=== PATIENT | female | born 1965 | race Caucasian/White ===

== ENCOUNTER 2018-03-24 12:53 | Emergency (ER) | payer BC ==
[2018-03-24] MEDS ORDERED: Metoclopramide 10 MG/2 ML SDV IVPUSH ONE (13:49)
[2018-03-24] MEDS ORDERED: diphenhydrAMINE 50 MG/ML SDV IVPUSH ONE (13:50)
[2018-03-24] MEDS ORDERED: HYDROmorphone 0.5 MG/0.5 ML SYRINGE IVPUSH ONE (13:50)
--- NOTE | 2018-03-24 13:54 | EDM.PDOC ---
ED HPI GENERAL MEDICAL PROBLEM - General Chief Complaint: Headache Stated Complaint: MIGRAINE Time Seen by Provider: 03/24/18 13:49 Source of Information: Reports: Patient History Limitations: Reports: No Limitations - History of Present Illness INITIAL COMMENTS - FREE TEXT/NARRATIVE: 52-year-old female presents to the ED with a severe headache which is dulled bilateral occipital headache and then radiates up into her head. She has a history of migraine headaches. Associated nausea with vomiting this morning. She awoke with a headache. Neck neck point pain. She is very sensitive to light. Was examined in a darkened room. Nothing different about this headache as compared to usual other than it's more occipital than usual. She has not taken any medication at home as she felt too nauseated. Onset: Today Onset Date: 03/24/18 Onset Time: 07:00 Duration: Hour(s): Location: Reports: Head Quality: Reports: Ache (Headache primarily occipital pressure discomfort.), Throbbing, Other Severity: Moderate (Pounding) Improves with: Reports: Rest ( rates it as 8 out of 10.) Worsens with: Reports: Movement ( in a darkened room. ) Context: Denies: Activity, Exercise, Lifting, Sick Contact, Trauma, Other Associated Symptoms: Reports: Headaches, Nausea/Vomiting (Nausea and vomiting this morning associate with the intensity of the headache). Denies: No Other Symptoms, Confusion, Chest Pain, Cough, cough w sputum, Diaphoresis, Fever/ Chills, Loss of Appetite, Malaise, Rash, Seizure, Shortness of Breath, Syncope Treatments SAP TRAINER: Reports: Other (see below) (None.) Headache Pain Score (Numeric/FACES): 10 - Related Data Allergies Allergy/AdvReac Type Severity Reaction Status Date / Time No Known Allergies Allergy Verified 03/24/18 13:10 Home Meds: Home Meds LORazepam [Ativan] 1 mg PO QPM PRN 04/13/15 [History] atorvaSTATin Calcium [Atorvastatin Calcium] 10 mg PO DAILY 04/13/15 [History] Past Medical History Neurological History: Reports: Other (See Below) Other Neuro History: migraine Social & Family History - Family History Family Medical History: Noncontributory - Tobacco Use Smoking Status *Q: Current Every Day Smoker Years of Tobacco use: 30 Packs/Tins Daily: 0.5 - Caffeine Use Caffeine Use: Reports: Coffee - Recreational Drug Use Recreational Drug Use: No - Living Situation & Occupation Living situation: Reports: Occupation: Employed [employer] - Review of Systems Review Of Systems: See Below Constitutional: Reports: Malaise, Fatigue, Decreased Appetite. Denies: Fever, Chills HEENT: Reports: Other Respiratory: Reports: No Symptoms (Photosensitivity) Cardiovascular: Reports: No Symptoms Endocrine: Reports: No Symptoms GI/Abdominal: Reports: Nausea, Vomiting (Twice this morning.) : Reports: No Symptoms Musculoskeletal: Reports: Neck Pain Skin: Reports: No Symptoms (Has pressure at the occipital aspect of her skull bilaterally.) Neurological: Reports: Headache. Denies: Confusion, Dizziness, Numbness, Syncope, Tingling, Tremors, Trouble Speaking, Weakness, Gait Disturbance Psychiatric: Denies: No Symptoms Hematologic/Lymphatic: Reports: No Symptoms Immunologic: Reports: No Symptoms - Physical Exam Exam: See Below Exam Limited By: No Limitations General Appearance: Alert, WD/WN, Moderate Distress (Examination a darkened room due to photophobia.) Eye Exam: Bilateral Eye: Normal Inspection Throat/Mouth: Normal Inspection, Normal Lips, Normal Teeth, Normal Oropharynx Head Exam: Atraumatic, Normocephalic Neck: Supple, Full Range of Motion, Tender Lateral (Tender laterally bilaterally worse on the left as compared to the right.) Respiratory/Chest: No Respiratory Distress, Lungs Clear, Normal Breath Sounds Neuro Exam (Abbreviated): Alert, Oriented, CN II-XII Intact, Normal Cognition, No Motor/Sensory Deficits, Other (Rapid alternating movements are normal. There is no pronator drift. Finger to nose assessment normal.) Extremities: Normal Inspection, Normal Range of Motion, Non-Tender, No Pedal Edema Psychiatric: Normal Affect, Normal Mood Skin Exam: Warm, Dry, Intact, Normal Color, No Rash Course - Vital Signs Last Recorded V/S: Last Vital Signs Temp 36.8 C 03/24/18 13:08 Pulse 84 03/24/18 13:08 Resp 18 03/24/18 13:08 BP 155/94 H 03/24/18 13:08 Pulse Ox 99 03/24/18 13:08 - Orders/Labs/Meds Orders: Active Orders 24 hr Category Date Time Status Dextrose 5%-0.9% NaCl [Dextrose 5%-Normal Saline] 1,000 Med 03/24/18 14:00 Active ml IV ASDIRECTED Ketorolac [Toradol] Med 03/24/18 14:00 Active 30 mg IVPUSH ONETIME Medication Orders Dextrose/Sodium Chloride (Dextrose 5%-Normal Saline) 1,000 mls @ 999 mls/hr IV ASDIRECTED STEPHANIE Last Admin: 03/24/18 14:12 Dose: 999 mls/hr Ketorolac Tromethamine (Toradol) 30 mg IVPUSH ONETIME STEPHANIE Last Admin: 03/24/18 14:12 Dose: 30 mg Meds: Medications Generic Name Dose Route Start Last Admin Trade Name Freq PRN Reason Stop Dose Admin Dextrose/Sodium Chloride 1,000 mls @ 999 mls/hr 03/24/18 14:00 03/24/18 14:12 Dextrose 5%-Normal Saline IV 999 mls/hr ASDIRECTED STEPHANIE Administration Ketorolac Tromethamine 30 mg 03/24/18 14:00 03/24/18 14:12 Toradol IVPUSH 30 mg ONETIME STEPHANIE Administration Discontinued Medications Generic Name Dose Route Start Last Admin Trade Name Freq PRN Reason Stop Dose Admin Diphenhydramine HCl 25 mg 03/24/18 13:50 03/24/18 14:14 Benadryl IVPUSH 03/24/18 13:51 25 mg ONETIME ONE Administration Hydromorphone HCl 0.5 mg 03/24/18 13:50 03/24/18 14:13 Dilaudid IVPUSH 03/24/18 13:51 0.5 mg ONETIME ONE Administration Metoclopramide HCl 7.5 mg 03/24/18 13:49 03/24/18 14:10 Reglan IVPUSH 03/24/18 13:50 7.5 mg ONETIME ONE Administration - Radiology Interpretation Free Text/Narrative:: 52-year-old female presents to the ED after awakening from sleep with a severe headache. Headache is atypical in terms that she usually gets a hemicranial headache which is usually retro-orbital. This headache is bilateral and tends to be primarily occipital. Associated nausea and vomiting 2 this morning. She' s not been able to keep anything down. First to be examined and darkened room. No exam is completely normal however. Plan IV D5 normal saline at open. Given Dilaudid 0.5 mg IV with Toradol 30 mg IV Reglan 7.5 mg IV and Benadryl 25 mg IV for headache relief. Will review in 30-40 minutes. - Re-Assessments/Exams Free Text/Narrative Re-Assessment/Exam: 03/24/18 15:16 she is feeling much better. She had a sleep for a period of time. She is now alert and oriented. Headache is preload gone nausea is gone. She'll be discharged to home to nap for another few hours to break the headache cycle. To take her home. Departure - Departure Time of Disposition: 15:16 Disposition: Home, Self-Care 01 Condition: Fair Clinical Impression: Migraine headache Qualifiers: Migraine type: without aura Status migrainosus presence: without status migrainosus Intractability: not intractable Qualified Code(s): G43.009 - Migraine without aura, not intractable, without status migrainosus - Discharge Information Referrals: Elaina Valdez ADMIN SECRETARY [Primary Care Provider] - Forms: ED Department Discharge Additional Instructions: Evaluation in the emergency him today in regards to development of a severe headache that she awoke with. History of migraine headaches. This headache was somewhat atypical that it involves the base of the skull bilaterally. Associated nausea and vomiting and photophobia. Neuro exam is otherwise normal. You're treated with intravenous pain medications Dilaudid 0.5 mg and Toradol 30 mg. You're also given antinausea medication Reglan 7.5 mg and Benadryl 25 mg IV for headache relief. Suggest home to sleep for another couple of hours. They need to resume fluids such as Gatorade or Powerade to maintain hydration and resume regular diet. - My Orders Last 24 Hours: My Active Orders 03/24/18 14:00 Dextrose 5%-0.9% NaCl [Dextrose 5%-Normal Saline] 1,000 ml IV ASDIRECTED Ketorolac [Toradol] 30 mg IVPUSH ONETIME - Assessment/Plan Last 24 Hours: My Active Orders 03/24/18 14:00 Dextrose 5%-0.9% NaCl [Dextrose 5%-Normal Saline] 1,000 ml IV ASDIRECTED Ketorolac [Toradol] 30 mg IVPUSH ONETIME
[2018-03-24] MEDS ORDERED: Dextrose 5%-0.9% NaCl 1,000 ML IV SCH (14:00)
[2018-03-24] MEDS ORDERED: Ketorolac 30 MG/ML SDV IVPUSH SCH (14:00)
[2018-03-24 15:26] VITALS: BP 135/69
== END 2018-03-24 15:23 | disposition home or self-care (01) ==
LOC: JD.ED 12:53
DX: G43.009 Migraine without aura, not intractable, without status migrainosus (principal); F17.210 Nicotine dependence, cigarettes, uncomplicated; Z79.899 Other long term (current) drug therapy
CPT/HCPCS: 96361; 96374; 96375; 99283; J1170; J1200; J1885; J2765; J7042; 99284

== ENCOUNTER 2020-05-20 07:48 | Day surgery (SDC) | payer BC ==
--- NOTE | 2020-05-19 11:31 | PCM.PREANE ---
<LouisSamreen sarabia Vinicius - Last Filed: 05/19/20 11:28> Preanesthetic Assessment - Procedure Proposed Procedure: Screening Colonoscopy - Anesthesia/Transfusion/Family Hx Anesthesia History: Prior Anesthesia Without Reaction Family History of Anesthesia Reaction: No Transfusion History: No Prior Transfusion(s) Intubation History: Unknown - Review of Systems Pulmonary: No Symptoms (Acute bronchitis: Smoker: times 5 years) Cardiovascular: No Symptoms (Elevated cholesterol) Other: Reports: None (Lymphadenopathy), Sinus Problem (Allergic rhinitis), Depression, Anxiety - Physical Assessment NPO Status Date: 05/19/20 Vital Signs: HR: B/P: Sat: Temp: Resp: ASA Class: 2 Mental Status: Alert & Oriented x3 - Lab Values: All labs reviewed and noted and within acceptable ranges to proceed with scheduled procedure. - Allergies Allergies/Adverse Reactions: Allergies Allergy/AdvReac Type Severity Reaction Status Date / Time No Known Allergies Allergy Verified 03/24/18 13:10 - Anesthesia Plan Pre-Op Medication Ordered: None - Acknowledgements Anesthesia Type Planned: MAC Pt an Appropriate Candidate for the Planned Anesthesia: Yes Alternatives and Risks of Anesthesia Discussed w Pt/Guardian: Yes Pt/Guardian Understands and Agrees with Anesthesia Plan: Yes PreAnesthesia Questionnaire Neurological History: Reports: Other (See Below) Other Neuro History: migraine - HOME MEDS Home Medications: Home Meds LORazepam [Ativan] 1 mg PO QPM PRN 04/13/15 [History] Cholecalciferol (Vitamin D3) [Vitamin D] 1 tab PO DAILY 05/19/20 [History] Clotrimazole/Betameth Dip/Zinc [Dermacinrx Therazole Cordell] 1 unit TOP BID PRN 05/19/20 [History] Escitalopram Oxalate [Lexapro] 10 mg PO DAILY 05/19/20 [History] Fish Oil/Snook-3 Fatty Acids [Fish Oil 1,000 MG] 1 tab PO DAILY 05/19/20 [History] L.acidoph,Paracasei, B.lactis [Probiotic] 1 tab PO DAILY 05/19/20 [History] Magnesium Amino Acid Chelate [Magnesium] 300 mg PO DAILY 05/19/20 [History] Progesterone, Micronized [Progesterone] 1 tab PO BEDTIME 05/19/20 [History] Rosuvastatin Calcium [Crestor] 40 mg PO DAILY 05/19/20 [History] Ubidecarenone [Co Q-10] 1 tab PO DAILY 05/19/20 [History] Zolpidem [Ambien] 10 mg PO BEDTIME PRN 05/19/20 [History] <LoisMilton - Last Filed: 05/20/20 08:15> Preanesthetic Assessment - Anesthesia/Transfusion/Family Hx Anesthesia History: Prior Anesthesia Without Reaction Transfusion History: No Prior Transfusion(s) - Review of Systems Pulmonary: No Symptoms Cardiovascular: No Symptoms Gastrointestinal: No Symptoms Neurological: No Symptoms Other: Reports: None, Sinus Problem - Physical Assessment NPO Status Date: 05/20/20 NPO Status Time: 04:00 Vital Signs: BP: 118/67, HR 83, RR 16, SpO2 96% T;97.2 Weight: 71 kg ASA Class: 2 Mental Status: Alert & Oriented x3 Airway Class: Mallampati = 2 Dentition: Reports: Normal Dentition, [place](s) Thyro-Mental Finger Breadths: 3 Mouth Opening Finger Breadths: 3 ROM/Head Extension: Full Lungs: Clear to Auscultation, Normal Respiratory Effort Cardiovascular: Regular Rate, Regular Rhythm - Acknowledgements Anesthesia Type Planned: MAC Pt an Appropriate Candidate for the Planned Anesthesia: Yes Alternatives and Risks of Anesthesia Discussed w Pt/Guardian: Yes Pt/Guardian Understands and Agrees with Anesthesia Plan: Yes PreAnesthesia Questionnaire Cardiovascular History: Reports: Heart Murmur (Per patient history, unable to auscultate) - SUBSTANCE USE Smoking Status *Q: Former Smoker - CURRENT (IN HOUSE) MEDS Current Meds: Current Medications Lactated Ringer's (Ringers, Lactated) 1,000 mls @ 125 mls/hr IV ASDIRECTED STEPHANIE Stop: 05/20/20 23:00 Lidocaine/Sodium Bicarbonate (Buffered Lidocaine 1% In Ns 8.4%) 0.25 ml IDERM ONETIME PRN PRN Reason: Prior to IV Start Stop: 05/20/20 18:00 Sodium Chloride (Saline Flush) 10 ml FLUSH ASDIRECTED PRN PRN Reason: Keep Vein Open Stop: 05/20/20 18:00 Discontinued Medications Fentanyl (Sublimaze) Confirm Administered Dose 100 mcg .ROUTE .STK-MED ONE Stop: 05/20/20 07:52 Propofol (Diprivan 20 Ml) Confirm Administered Dose 200 mg .ROUTE .STK-MED ONE Stop: 05/20/20 07:52
[~2020-05-20 07:48] MED LIST: Lactated Ringers 1,000 ML IV SCH; Lidocaine 1%/Sod Bicarbonate in NS 8.4% 1 ML Syringe IDERM PRN; Sodium Chloride 0.9% 10 ML Syringe FLUSH PRN
[2020-05-20] MEDS ORDERED: Propofol 200 MG/20 ML SDV ONE ×2 (07:51→09:11)
[2020-05-20] MEDS ORDERED: fentaNYL 100 MCG/2 ML SDV ONE (07:51)
[2020-05-20] MEDS ORDERED: Midazolam 1 MG/ML 2 ML SDV ONE (09:06)
[2020-05-20] MEDS ORDERED: Ondansetron 4 MG/2 ML SDV ONE (09:34)
[2020-05-20] MEDS ORDERED: Glycopyrrolate 0.2 MG/ML SDV ONE (09:36)
[2020-05-20] MEDS ORDERED: ePHEDrine Sulfate/0.9% NaCl/Pf 25 MG/5 ML SYRINGE IV ONE (09:46)
--- NOTE | 2020-05-20 10:09 | PCM48HPAN ---
Post Anesthesia Note - EVALUATION WITHIN 48HRS OF ANESTHETIC Vital Signs in Normal Range: Yes Patient Participated in Evaluation: Yes Airway Patent: Yes Cardiovascular Function Stable: Yes Hydration Status Stable: Yes Pain Control Satisfactory: Yes Nausea and Vomiting Control Satisfactory: Yes Mental Status Recovered: Yes Vital Signs: Last Vital Signs Temp 97.6 F 05/20/20 09:56 Pulse 88 05/20/20 09:56 Resp 16 05/20/20 09:56 BP 100/60 05/20/20 09:56 Pulse Ox 91 L 05/20/20 09:56
[2020-05-20 11:02] VITALS: BP 108/61; PULSE 72
--- NOTE | 2020-05-21 08:35 | PCM.PRNOTE ---
- Free Text/Narrative Note: Date: 05/20/2020 Procedure: screening colonoscopy Endoscopist: Prosper Charles MD Findings: excellent prep. Cecum reached with ease. Several diminutive hyperplastic-appearing polyps in the rectum, the largest of which was biopsied. A larger, more adenomatous lesion in the rectum was also biopsied. Detailed Report: The patient was taken to the endoscopy suite and placed in left lateral decubitus position. Time out was performed and monitored anesthesia care initiated. The anus appeared normal. Digital rectal exam was unremarkable. The colonoscope was lubricated and inserted into the anus. There was some difficulty navigating past the sigmoid due to a tight turn, but this was completed safely. The scope was then easily advanced to the cecum. The appendiceal orifice was visualized. The scope was slowly withdrawn and mucosal surfaces carefully inspected. The prep was very good. No lesions were identified until the rectum came into view, where several very small, benign appearing lesions consistent with hyperplastic polyps were seen. One of the more prominent of these lesions was biopsied with forceps. An additional lesion was noted which had a more adenomatous appearance, which was biopsied with forceps. The base of the site was fulgurated. No abnormality noted on retroflexion within the rectum. Air was suctioned and the scope withdrawn. The patient tolerated the procedure well.
== END 2020-05-20 10:59 | disposition home or self-care (01) ==
LOC: JD.SDS 07:48
PROVIDERS: ATTEND Surgery
DX: Z12.11 Encounter for screening for malignant neoplasm of colon (principal); K62.1 Rectal polyp; K63.5 Polyp of colon; F32.9 Major depressive disorder, single episode, unspecified; F17.200 Nicotine dependence, unspecified, uncomplicated; G47.00 Insomnia, unspecified; E78.00 Pure hypercholesterolemia, unspecified; Z79.899 Other long term (current) drug therapy
CPT/HCPCS: 45380; J0171; J2250; J2405; J2704; J3010; J3490; J7120; 00812

== ENCOUNTER 2023-01-26 00:54 | Emergency (ER) | payer OTHER ==
[2023-01-26] MEDS ORDERED: Sodium Chloride 0.9% 10 ML Syringe FLUSH PRN (01:10)
[2023-01-26] MEDS ORDERED: Aspirin 81 MG Tab.Chew PO ONE (02:26)
[2023-01-26 04:37] VITALS: BP 113/59; PULSE 75
== END 2023-01-26 04:36 | disposition home or self-care (01) ==
LOC: JD.ED 00:54
DX: R07.2 Precordial pain (principal); E78.00 Pure hypercholesterolemia, unspecified; Z86.16 Personal history of COVID-19; Z79.899 Other long term (current) drug therapy
CPT/HCPCS: 36415; 71045; 80053; 81003; 83735; 83880; 84484; 85025; 85379; 85610; 93005; 99285; A9270; J3490; 93010; 99284